=== PATIENT | male | born 1945 | race American Indian/Alaskan Native ===

== ENCOUNTER 2021-01-26 18:17 | Emergency (ER) | payer MEDICAID ==
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
[2021-01-26] MEDS ORDERED: ACETAMINOPHEN 500 MG TAB PO ONE (23:03)
[2021-01-27] MEDS ORDERED: amLODIPine 5 MG TAB PO ONE (00:15)
[2021-01-27 00:31] VITALS: BP 201/111
== END 2021-01-27 01:35 | disposition left against medical advice (07) ==
LOC: ED 18:17
DX: I10 Essential (primary) hypertension (principal); Z53.21 Procedure and treatment not carried out due to patient leaving prior to being seen by health care provider